=== PATIENT | male | born 1980 | race Caucasian/White ===

== ENCOUNTER → 2016-05-14 | Outpatient (CLI) | payer SELFPAY ==
--- NOTE | 2016-05-14 16:36 | RAD ---
EXAM DESCRIPTION: Abdomen 1 View CLINICAL HISTORY: 36 years,Male,RIGHT UPPER QUADRANT PAIN 3-4 months under the right ribs history kidney stones COMPARISON: None FINDINGS: Bowel gas pattern is nonspecific. There is no evidence of free air. Bony elements are unremarkable. No evidence of radiopaque stones along the course of the kidneys or ureters. IMPRESSION: Unremarkable abdominal x-ray. Electronically signed by: Inocencio Alejo MD 05/14/2016 4:35 PM CDT
== END | disposition home or self-care (01) ==
LOC: RAD 15:23
PROVIDERS: ATTEND Nurse Practitioner Family
DX: R10.11 Right upper quadrant pain (principal)

== ENCOUNTER 2016-05-24 16:25 | Emergency (ER) | payer SELFPAY ==
[2016-05-24] MEDS ORDERED: KETOROLAC TROMETHAMINE INJ 30 MG/ML VIAL IV ONE (16:44)
[2016-05-24] MEDS ORDERED: SODIUM CHLORIDE 0.9% 1000ML 1,000 ML IVS ONE (16:44)
--- NOTE | 2016-05-24 16:47 | ED.PDOC ---
History of Present Illness - General Chief Complaint: Problem Stated Complaint: RIGHT FLANK PAIN Time Seen by Provider: 05/24/16 16:39 Source: patient, RN notes reviewed, Vital Signs reviewed Exam Limitations: no limitations - History of Present Illness Initial Comments: Patient has been having R flank pain off and on for the past 3-4 months. Pain has worsened recently and got very severe today. No fever/chills, N/V or urinary symptoms. Timing/Duration: getting worse Quality: moderate, sharpness, stabbing Onset Location: right flank Radiation: none Activites at Onset: none Prior abdominal problems: similar symptoms - kidney stone Improving Factors: nothing Worsening Factors: nothing Associated Symptoms: denies symptoms Allergies/Adverse Reactions: Allergies NO KNOWN ALLERGY Allergy (Verified 05/27/15 04:03) Home Medications: Ambulatory Orders Diazepam 2.5 mg PO PRN PRN 07/25/14 Acetaminophen W/ Codeine [Tylenol W/ CODEINE #3] 1 ea PO Q6HRS PRN #15 Cyclobenzaprine HCl [Flexeril] 5 mg PO Q8HRS PRN #15 tab 05/24/16 Review of Systems - Review of Systems Constitutional: States: no symptoms reported. Denies: chills, fever, malaise EENTM: States: no symptoms reported Respiratory: States: no symptoms reported Cardiology: States: no symptoms reported Gastrointestinal/Abdominal: States: no symptoms reported. Denies: abdominal pain, diarrhea, nausea, vomiting Genitourinary: States: no symptoms reported. Denies: dysuria, frequency, hematuria Musculoskeletal: States: back pain - Right flank Skin: States: no symptoms reported Neurological: States: no symptoms reported Past Medical History (General) - Patient Medical History Hx of COPD: No Family Medical History - Family History Mother Family History: Unknown Living Status: Still Living Physical Exam - Physical Exam General Appearance: Alert, Comfortable, No apparent distress, Well Developed, Well Groomed, Well Hydrated, Well Nourished Neck: non-tender, full range of motion, supple, normal inspection Cardiovascular/Respiratory: regular rate, rhythm, no M/R/G, no JVD, normal breath sounds, no respiratory distress Gastrointestinal/Abdominal: normal bowel sounds, non tender, soft, no organomegaly, no pulsatile mass Back Exam: normal inspection, no CVA tenderness Extremity: normal range of motion, non-tender, normal inspection, no pedal edema Neurologic: no motor/sensory deficits, alert, normal mood/affect, oriented x 3 Skin Exam: normal color, warm/dry Comments: Vital Signs - 24 hr 05/24/16 05/24/16 16:30 17:35 Temperature 97.6 F Pulse Rate [ 87 64 PULSE OX] Respiratory 20 20 Rate Blood Pressure 135/91 106/62 [RIGHT BRACHIAL ] O2 Sat by Pulse 97 98 Oximetry Progress - Progress Progress: 05/24/16 18:13 Discussed results with patient. Most likely is musculoskeltal. May need MRI through PCP. - Results/Orders Results/Orders: Laboratory Tests 05/24/16 05/24/16 17:01 17:02 WBC 7.2 RBC 5.84 Hgb 17.8 Hct 51.3 MCV 87.9 MCH 30.4 MCHC 34.6 RDW 13.1 Plt Count 223 MPV 7.6 Absolute Neuts (auto) 3.80 Absolute Lymphs (auto) 2.50 Absolute Monos (auto) 0.60 Absolute Eos (auto) 0.20 Absolute Basos (auto) 0.00 Neutrophils % 53.7 Lymphocytes % 34.7 Monocytes % 8.3 Eosinophils % 2.9 Basophils % 0.4 Sodium 140 Potassium 3.5 L Chloride 103 Carbon Dioxide 30 Anion Gap 10.5 L BUN 13 Creatinine 0.96 BUN/Creatinine Ratio 13.5 Random Glucose 89 Serum Osmolality 279.0 Calcium 9.4 Total Bilirubin 0.7 AST 31 ALT 41 Alkaline Phosphatase 68 Serum Total Protein 8.1 Albumin 4.8 Globulin 3.3 Albumin/Globulin Ratio 1.5 Urine Color Yellow Urine Appearance Cloudy Urine pH 8.5 H Ur Specific [place] 1.020 Urine Protein Negative Urine Glucose (UA) Negative Urine Ketones Negative Urine Blood Negative Urine Nitrite Negative Urine Bilirubin Negative Urine Urobilinogen 1.0 Ur Leukocyte Esterase Negative Urine RBC 0 Urine WBC 0 Ur Epithelial Cells 1-3 Amorphous Sediment 4+ Urine Bacteria 0 - EKG/XRAY/CT CT Ordered: Yes - Abd/Pel: normal, no acute abnormalities Departure - Departure Clinical Impression: Right flank pain, chronic Time of Disposition: 18:14 Disposition: Discharge to Home or Self Care Condition: Good Departure Forms: ED Discharge - Pt. Copy, Patient Portal Self Enrollment Instructions: DI for Back Strain or Sprain Diet: resume usual diet Activity: increase activity as tolerated Prescriptions: Acetaminophen W/ Codeine [Tylenol W/ CODEINE #3] 1 ea PO Q6HRS PRN #15 PRN Reason: Moderate To Severe Pain Cyclobenzaprine HCl [Flexeril] 5 mg PO Q8HRS PRN #15 tab PRN Reason: Muscle Spasms Home Medications: Ambulatory Orders Diazepam 2.5 mg PO PRN PRN 07/25/14 Acetaminophen W/ Codeine [Tylenol W/ CODEINE #3] 1 ea PO Q6HRS PRN #15 Cyclobenzaprine HCl [Flexeril] 5 mg PO Q8HRS PRN #15 tab 05/24/16
[2016-05-24 16:51] VITALS: TEMP 97.6
[2016-05-24] MEDS ORDERED: ONDANSETRON INJ 4 MG/2 ML VIAL IV ONE (17:04)
[2016-05-24 18:01] VITALS: BP 106/62; O2SAT 98
--- NOTE | 2016-05-24 18:09 | CT ---
Procedure: CT ABDOMEN PELVIS WITHOUT IV CONTRAST Exam Date: 05/24/2016 Ordering Provider: Danni Lira Clinical Indication: R flank pain, nausea Comparison: None TECHNIQUE: Unenhanced 5 mm images were taken through the abdomen and pelvis without the administration of oral contrast material. Coronal and sagittal reformatted images were generated. This exam was performed according to our departmental dose optimization program which includes use of automated exposure control, adjustment of the mA and/or kV according to patient size and/or use of iterative reconstruction technique. FINDINGS: Lower chest: Nonacute Abdomen: Liver and biliary system: No gross liver lesions on this noncontrast examination. No biliary ductal dilatation. No calcified gallstones. Spleen: Unremarkable Pancreas: Unremarkable Adrenal glands: Unremarkable Kidneys: No contour deforming renal lesions on this noncontrast examination. No hydronephrosis in either kidney. No urinary tract calcifications. Pelvic phleboliths. Lymph nodes: No lymphadenopathy Retroperitoneum, peritoneal cavity, abdominal wall : No ascites. No free intraperitoneal air. Vessels: No abdominal aortic aneurysm. Pelvis: Lymph nodes: No lymphadenopathy. Peritoneal cavity: No pelvic free fluid Bowel: No bowel obstruction. Colonic diverticulosis without evidence of diverticulitis. Normal appendix. No bowel wall thickening. Bladder: Unremarkable Pelvic organs: Prostate calcifications. Bones: Nonacute IMPRESSION: 1. No acute abnormalities in the abdomen or pelvis. 2. Colonic diverticulosis without evidence of diverticulitis. Electronically signed by: Zane Samayoa MD 05/24/2016 6:08 PM CDT
== END 2016-05-24 18:34 | disposition home or self-care (01) ==
LOC: ER 16:25
DX: G89.29 Other chronic pain (principal); R10.9 Unspecified abdominal pain
CPT/HCPCS: 36415; 74176; 80053; 81001; 85025; J1885; J2405; J7030

== ENCOUNTER → 2017-09-18 | Outpatient (CLI) | payer SELFPAY ==
--- NOTE | 2017-09-18 13:32 | RAD ---
EXAM DESCRIPTION: Wrist,Left 2 Views CLINICAL HISTORY: 37 years Male, PAIN IN LEFT WRIST COMPARISON: None available. FINDINGS: The visualized bones are well-mineralized.No acute fracture or dislocation. The soft tissues appear grossly unremarkable. IMPRESSION: Normal radiographs of the left wrist. Electronically signed by: Magaly Shin MD 09/18/2017 1:30 PM CDT
--- NOTE | 2017-09-18 13:32 | RAD ---
EXAM DESCRIPTION: Wrist,Right 2 Views CLINICAL HISTORY: 37 years Male, PAIN IN RIGHT WRIST COMPARISON: None available. FINDINGS: The visualized bones are well-mineralized.No acute fracture or dislocation. The soft tissues appear grossly unremarkable. IMPRESSION: Normal radiographs of the right wrist. Electronically signed by: Magaly Shin MD 09/18/2017 1:31 PM CDT
== END ==
LOC: RAD 10:30
PROVIDERS: ATTEND Nurse Practitioner Family
DX: M25.531 Pain in right wrist (principal); M25.532 Pain in left wrist

== ENCOUNTER → 2018-08-17 | Outpatient (CLI) | payer OTHER ==
--- NOTE | 2018-08-18 09:19 | RAD ---
EXAM DESCRIPTION: Radiographs of the left Shoulder:XR/CR/DR CLINICAL HISTORY: PAIN. Left shoulder. COMPARISON: None TECHNIQUE: 4 views. Internal and external rotation. Scapular "Y" image.. Axillary view. FINDINGS: No fracture left shoulder. Normal bone density. AC joint unremarkable. Glenohumeral joint intact. No abnormal radiodense objects in the soft tissues or joint spaces. IMPRESSION: No acute bony or joint margin abnormality in the left shoulder. Electronically signed by: Ervin Mtz MD 08/18/2018 9:18 AM CDT
== END ==
LOC: RAD 17:30
PROVIDERS: ATTEND Nurse Practitioner Family
DX: M25.512 Pain in left shoulder (principal)

== ENCOUNTER → 2018-08-18 | Outpatient (CLI) | payer OTHER ==
--- NOTE | 2018-08-18 15:23 | MRI ---
Study: MRI of the Left Shoulder. Indication: SHOULDER PAIN Technique: Multiplanar, multi sequence MRI of the left shoulder was obtained without intravenous contrast. Comparison: Radiographs August 17, 2018. Findings: Moderate AC joint osteoarthritis with reactive marrow edema distal clavicular head and acromion as well as pericapsular edema. Type I acromion with moderate lateral downsloping. Trace subacromial/subdeltoid bursal fluid. Supraspinatus and infraspinatus tendinosis noted and most pronounced at the mid supraspinatus tendon insertion but without fluid-filled tear. Subscapularis and teres minor tendons intact. Rotator cuff musculature normal without atrophy, fatty infiltration, or intramuscular edema. Long head biceps tendon intact. Anterior superior labral foramen. Suspected undersurface tearing of the base of the bicipital labral anchor and superior labrum concerning for a SLAP tear with additional free edge truncation posteriorly. No acute fracture or advanced glenohumeral joint osteoarthritis. Impression: Supraspinatus and infraspinatus tendinosis without tear. Suspected SLAP tear as well as free edge truncation posterior labrum. MRI arthrography could better evaluate as clinically indicated. Moderate AC joint osteoarthritis with reactive marrow edema and pericapsular inflammation. Electronically signed by: Jordan Fairchild MD 08/18/2018 3:21 PM CDT
== END ==
LOC: MRI 12:00
PROVIDERS: ATTEND Nurse Practitioner Family
DX: M19.012 Primary osteoarthritis, left shoulder (principal); M75.32 Calcific tendinitis of left shoulder

== ENCOUNTER → 2019-09-27 | Emergency (ER) | payer SELFPAY | END | disposition left against medical advice (07) | LOC: ER 18:15 → EDSTATUS 18:17 | DX: M79.676 Pain in unspecified toe(s) (principal); Z53.21 Procedure and treatment not carried out due to patient leaving prior to being seen by health care provider ==

== ENCOUNTER 2020-02-19 00:05 | Emergency (ER) | payer SELFPAY ==
--- NOTE | 2020-02-19 00:44 | ED.PDOC ---
History of Present Illness - General Chief Complaint: Upper Extremity Injury Stated Complaint: right hand Time Seen by Provider: 02/19/20 00:23 Source: patient Exam Limitations: no limitations - History of Present Illness Occurred: just prior to arrival Pain - Upper Extremity: moderate: Hand, right Method of Injury: direct blow, other - STATES HE HIT HIS HAND IN A WODEN WALL Improving Factors: nothing Worsening Factors: nothing Allergies/Adverse Reactions: Allergies NO KNOWN ALLERGY Allergy (Verified 05/27/15 04:03) Home Medications: Ambulatory Orders Paroxetine HCl [Paxil] 20 mg PO DAILY 02/19/20 Review of Systems - Review of Systems Constitutional: Denies: chills, fever EENTM: Denies: tearing, nose pain, nose congestion Respiratory: Denies: cough, stridor Cardiology: Denies: chest pain, palpitations, syncope Gastrointestinal/Abdominal: Denies: abdominal pain, diarrhea, nausea Genitourinary: Denies: discharge, frequency, hematuria Musculoskeletal: States: joint pain, joint swelling, muscle pain. Denies: back pain, gout, muscle stiffness Skin: Denies: change in color, dryness, lesions Neurological: States: no symptoms reported. Denies: see HPI, depressed, emotional problems, numbness Endocrine: Denies: flushing, intolerance to cold Hematologic/Lymphatic: Denies: anemia, easy bruising Past Medical History (General) - Patient Medical History Hx Seizures: No Hx Stroke: No Hx Dementia: No Hx Asthma: No Hx of COPD: No Hx Cardiac Disorders: No Hx Congestive Heart Failure: No Hx Pacemaker: No Hx Hypertension: No Hx Thyroid Disease: No Hx Diabetes: No Hx Gastroesophageal Reflux: No Hx Renal Disease: No Hx Cancer: No Hx of HIV: No Hx Hepatitis C: No Hx MRSA: No Surgical History: other - Vaccination History Hx Tetanus, Diphtheria Vaccination: Yes Hx Influenza Vaccination: No Hx Pneumococcal Vaccination: Yes Immunizations Up to Date: Yes - Social History Hx Tobacco Use: No Hx Chewing Tobacco Use: No Hx Alcohol Use: Yes - weekly Hx Substance Use: No Hx Substance Use Treatment: No Hx Depression: Yes Feels Threatened In Home Enviroment: No Feels Threatened In a Relationship: No Hx Physical Abuse: No Hx Emotional Abuse: No Hx Suspected Abuse: No - Activities of Daily Living Hospice Agency (if applicable):: None - Female History Patient is a Female of Child Bearing Age (10 -59 yrs old): No - Triage Comment ED Triage Comment: states "i was mad an hit the wood door " Family Medical History - Family History Mother Family History: Unknown Living Status: Still Living Physical Exam - Physical Exam General Appearance: Alert, Well Developed Eyes, Ears, Nose, Throat Exam: PERRL/EOMI, normal ENT inspection, pharynx normal Neck: non-tender, full range of motion, supple Cardiovascular/Respiratory: regular rate, rhythm, normal peripheral pulses, no JVD, normal breath sounds, no respiratory distress Abdominal Exam: non-tender, no organomegaly Back Exam: normal inspection, no CVA tenderness, no vertebral tenderness Shoulder Exam: normal inspection, non-tender, no evidence of injury Elbow/Forearm Exam: normal inspection, non-tender Wrist Exam: bone tenderness Hand Exam: bone tenderness, deformity - RIGHT HAND , NEUROVASCULAR BUNDLE INTACT , DISTALLY Neuro/Tendon: normal sensation, normal motor functions, normal tendon functions, responds to pain Mental Status: alert, oriented x 3 Skin Exam: normal color Progress - Progress Progress: 02/19/20 01:15 Patient presents with hand pain after he punched his hand into the wall. He is able to move all his fingers pulses are intact sensation is intact. He has fractures of the feet and for metacarpal bones. Discharge the patient follow-up outpatient with hand surgery his verbalized understanding - EKG/XRAY/CT XRAY: Intra-articular fractures of the base of the fourth and fifth metacarpal wi Departure - Departure Clinical Impression: Hand fracture, right, Metacarpal bone fracture Disposition: Discharge to Home or Self Care Condition: Fair Departure Forms: ED Discharge - Pt. Copy, Patient Portal Self Enrollment Instructions: DI for Arm Pain, Hand Fracture (DC) Referrals: Donald De Jesus MD [Active Staff] - 1-2 Weeks Home Medications: Ambulatory Orders Paroxetine HCl [Paxil] 20 mg PO DAILY 02/19/20 Additional Instructions: Please follow-up with Dr. Haynes office in 1 to 2 days.Is very important that you follow-up outpatient for your Metacarpal bone fractures Return to the emergency department if you do lose any sensation in your hand or you cannot move your fingers
--- NOTE | 2020-02-19 00:55 | RAD ---
EXAM DESCRIPTION: Hand,Right 3 Views CLINICAL HISTORY: 39 years Male, pain COMPARISON: None. FINDINGS/IMPRESSION: Intra-articular fractures of the base of the fourth and fifth metacarpal. Dorsal displacement. Soft tissue swelling. No dislocation. Electronically signed by: Arun Holman DO 02/19/2020 12:53 AM [facility]
[2020-02-19] MEDS: KETOROLAC TROMETHAMINE INJ 30 MG/ML VIAL IM ONE ×2 (01:18→01:21)
[2020-02-19 01:26] VITALS: BP 134/78; TEMP 98.1; O2SAT 96
== END 2020-02-19 01:20 | disposition home or self-care (01) ==
LOC: ER 00:05
DX: S62.314A Displaced fracture of base of fourth metacarpal bone, right hand, initial encounter for closed fracture (principal); F32.9 Major depressive disorder, single episode, unspecified; W22.09XA Striking against other stationary object, initial encounter; Y92.9 Unspecified place or not applicable

== ENCOUNTER → 2020-02-20 | Outpatient (CLI) | payer SELFPAY ==
--- NOTE | 2020-02-20 12:26 | RAD ---
EXAM DESCRIPTION: Hand,Right 3 Views CLINICAL HISTORY: 39 years Male, PAIN IN RIGHT HAND COMPARISON: 02/19/2020 Findings: 3 view(s)/radiograph(s) Similar fourth and fifth metacarpal base fractures. No interval healing. No significant change in alignment. There is adjacent soft tissue swelling. No new fracture. No dislocation. IMPRESSION: Similar right fourth and fifth metacarpal base fractures. Electronically signed by: Lewis Lemons MD 02/20/2020 12:25 PM [facility]
== END ==
LOC: RAD 08:54
PROVIDERS: ATTEND Orthopaedic Surgery
DX: S62.304D Unspecified fracture of fourth metacarpal bone, right hand, subsequent encounter for fracture with routine healing (principal); S62.306D Unspecified fracture of fifth metacarpal bone, right hand, subsequent encounter for fracture with routine healing

== ENCOUNTER → 2020-03-02 | Outpatient (CLI) | payer SELFPAY ==
--- NOTE | 2020-03-02 16:20 | RAD ---
EXAM DESCRIPTION: Hand,Right 3 Views CLINICAL HISTORY: 39 years Male, FX OF METACARPAL BONE COMPARISON: February 20, 2020 FINDINGS: Four views of the right hand were obtained. Bony detail is obscured by artifact from superimposed splint material. Again seen are fractures involving the third and fourth metacarpal bases with intra-articular extension and probable comminution. Significant anterior displacement of one of the small proximal fracture fragments, new from the previous exam. No other significant interval change. IMPRESSION: Nonunited, probably comminuted fourth and fifth metacarpal base fractures with significant anterior displacement of one of the proximal fracture fragments, apparently new from February 20, 2020. If relevant, CT could be performed for more detailed evaluation. Electronically signed by: Mak Matos MD 03/02/2020 4:18 PM [facility]
== END ==
LOC: RAD 07:57
PROVIDERS: ATTEND Orthopaedic Surgery
DX: S62.304K Unspecified fracture of fourth metacarpal bone, right hand, subsequent encounter for fracture with nonunion (principal); S62.30 Unspecified fracture of other metacarpal bone

== ENCOUNTER → 2020-03-23 | Outpatient (CLI) | payer SELFPAY ==
--- NOTE | 2020-03-23 21:59 | RAD ---
EXAM: Hand,Right 3 Views INDICATION: 39 years Male, FX OF RIGHT METACARPAL BONES COMPARISON: 3 views of the right hand 02/19/2020 FINDINGS: 3 views of the right hand were performed. Comminuted fractures at the base of the fourth and fifth metacarpals, mildly impacted with slight palmar angulation of the distal fracture fragments. Only minor callus formation has developed since the baseline radiograph of 02/19/2020. Alignment is grossly stable from the 02/19/2020 examination. Anterior displacement of one of the proximal fracture fragments seen on the examination of 03/02/2020 is no longer apparent. No other definite fractures are identified. No joint dislocation. No destructive osseous lesion. Mild scattered degenerative change in the hand. Hypothenar soft tissue edema continues to improve. No radiopaque foreign body. IMPRESSION: Comminuted fractures at the base of the right hand fourth and fifth metacarpals with only minor callus formation since the baseline radiograph of 02/19/2020. Alignment is stable from 02/19/2020, and the previously seen anterior displacement of a proximal fracture fragment on 03/02/2020 is no longer apparent. Electronically signed by: Flower Regalado MD 03/23/2020 9:58 PM [facility]
== END ==
LOC: RAD 08:03
PROVIDERS: ATTEND Orthopaedic Surgery
DX: S62.304D Unspecified fracture of fourth metacarpal bone, right hand, subsequent encounter for fracture with routine healing (principal); S62.306D Unspecified fracture of fifth metacarpal bone, right hand, subsequent encounter for fracture with routine healing

== ENCOUNTER → 2020-04-20 | Outpatient (CLI) | payer SELFPAY ==
--- NOTE | 2020-04-21 13:10 | RAD ---
EXAM DESCRIPTION: Hand,Right 3 Views CLINICAL HISTORY: 40 years Male, FX OF METACARPAL BONE COMPARISON: 03/23/2020 TECHNIQUE: 3 view radiograph of the right hand. IMPRESSION: Redemonstrated comminuted fracture at the base of the fifth metacarpal extending into the carpal metacarpal joint space. There is increased sclerosis along the fracture consistent with healing process. Stable mild dorsal angulation at the fracture apex. No acute displaced fracture. Remaining osseous structures intact. Minimal negative ulnar variance of 1 to 2 mm. No soft tissue defect. Probably mild soft tissue swelling about the carpal and metacarpal bones. Electronically signed by: Sal Romero MD 04/21/2020 1:08 PM [facility]
== END ==
LOC: RAD 07:57
PROVIDERS: ATTEND Orthopaedic Surgery
DX: S62.306D Unspecified fracture of fifth metacarpal bone, right hand, subsequent encounter for fracture with routine healing (principal)